=== PATIENT | male | born 1955 | race Caucasian/White ===

== ENCOUNTER → 2017-01-06 | Outpatient (CLI) | payer OTHER ==
[2017-01-06 12:15] LABS: BASOPHIL% 0.6 % (0-2.5); EOSINOPHIL# 0.1 X10e3 (0-0.7); EOSINOPHIL% 1.5 % (0.0-7.0); HEMATOCRIT 26.3 % (38.0-50.0); HEMOGLOBIN 8.5 gm/dL (13.0-16.0); LYMPHOCYTE# 1.1 X10e3 (1.0-3.5); LYMPHOCYTE% 14.9 % (17.0-45.0); MEAN CELL VOLUME 87.2 FL (83-96); MEAN CORPUSCULAR HEMOGLOBIN 28.2 PG (28-34); MEAN CORPUSCULAR HGB CONC 32.4 g/dL (30-36); MEAN PLATELET VOLUME 6.7 FL (6.5-11.5); MONOCYTE# 0.4 X10e3 (0-1.0); MONOCYTE% 5.1 % (3.0-12.0); NEUTROPHIL# 5.7 X10e3 (1.5-7.1); NEUTROPHIL% 77.9 % (40-75); PLATELET COUNT 234 X10e3 (140-420); RED BLOOD COUNT 3.02 X10e (3.90-5.60); RED CELL DISTRIBUTION WIDTH 19.2 % (11.0-15.5); WHITE BLOOD COUNT 7.3 X10e3 (4.0-10.5)
[2017-01-06 12:16] LABS: DIFF IND NO
[2017-01-06 13:42] LABS: ALBUMIN SERUM 3.9 g/dL (3.5-5.0); BILIRUBIN,TOTAL 0.5 mg/dL (0.2-2.0); BUN/CREATININE RATIO 13.12; CALCIUM SERUM 9.5 mg/dL (8.4-10.2); CREATININE SERUM 1.6 mg/dL (0.6-1.4); GLOM FILT RATE Estimated 46.2 mL/min (>60); POTASSIUM 5.1 mmol/L (3.5-5.1); PROTEIN TOTAL SERUM 6.5 g/dL (6.0-8.3)
== END | disposition home or self-care (01) ==
LOC: CTPL 11:13
PROVIDERS: Surgery
DX: Z48.23 Encounter for aftercare following liver transplant (principal); T45.1X1A Poisoning by antineoplastic and immunosuppressive drugs, accidental (unintentional), initial encounter; Z13.1 Encounter for screening for diabetes mellitus; Z94.4 Liver transplant status; Z79.899 Other long term (current) drug therapy
CPT/HCPCS: 36415; 80053; 80197; 82465; 84478; 85025

== ENCOUNTER → 2017-01-12 | Outpatient (CLI) | payer OTHER, MEDICARE ==
[2017-01-12 09:51] LABS: BASOPHIL# 0.1 X10e3 (0-0.3); BASOPHIL% 0.9 % (0-2.5); DIFF IND NO; EOSINOPHIL# 0.1 X10e3 (0-0.7); HEMATOCRIT 26.5 % (38.0-50.0); HEMOGLOBIN 8.6 gm/dL (13.0-16.0); LYMPHOCYTE# 1.4 X10e3 (1.0-3.5); LYMPHOCYTE% 19.8 % (17.0-45.0); MEAN CORPUSCULAR HEMOGLOBIN 28.4 PG (28-34); MEAN CORPUSCULAR HGB CONC 32.6 g/dL (30-36); MEAN PLATELET VOLUME 6.3 FL (6.5-11.5); MONOCYTE# 0.5 X10e3 (0-1.0); MONOCYTE% 6.4 % (3.0-12.0); NEUTROPHIL% 70.9 % (40-75); PLATELET COUNT 231 X10e3 (140-420); RED BLOOD COUNT 3.04 X10e (3.90-5.60); RED CELL DISTRIBUTION WIDTH 18.6 % (11.0-15.5); WHITE BLOOD COUNT 7.1 X10e3 (4.0-10.5)
[2017-01-12 10:54] LABS: ALBUMIN SERUM 3.8 g/dL (3.5-5.0); BILIRUBIN,TOTAL 0.2 mg/dL (0.2-2.0); BUN/CREATININE RATIO 13.88; CALCIUM SERUM 9.6 mg/dL (8.4-10.2); CREATININE SERUM 1.8 mg/dL (0.6-1.4); PROTEIN TOTAL SERUM 6.2 g/dL (6.0-8.3)
[2017-01-12 11:02] LABS: POTASSIUM 5.4 mmol/L (3.5-5.1)
== END | disposition home or self-care (01) ==
LOC: CLAB 09:03
PROVIDERS: Surgery
DX: Z48.23 Encounter for aftercare following liver transplant (principal); Z13.1 Encounter for screening for diabetes mellitus; T45.1X1D Poisoning by antineoplastic and immunosuppressive drugs, accidental (unintentional), subsequent encounter; Z79.891 Long term (current) use of opiate analgesic; Z94.4 Liver transplant status
CPT/HCPCS: 36415; 80053; 80197; 85025

== ENCOUNTER → 2017-01-26 | Outpatient (CLI) | payer OTHER, MEDICARE ==
[2017-01-26 08:59] LABS: BASOPHIL% 0.9 % (0-2.5); EOSINOPHIL# 0.1 X10e3 (0-0.7); EOSINOPHIL% 1.7 % (0.0-7.0); HEMOGLOBIN 8.8 gm/dL (13.0-16.0); LYMPHOCYTE# 1.3 X10e3 (1.0-3.5); LYMPHOCYTE% 23.7 % (17.0-45.0); MEAN CELL VOLUME 88.8 FL (83-96); MEAN CORPUSCULAR HEMOGLOBIN 28.8 PG (28-34); MEAN CORPUSCULAR HGB CONC 32.5 g/dL (30-36); MEAN PLATELET VOLUME 6.6 FL (6.5-11.5); MONOCYTE# 0.6 X10e3 (0-1.0); MONOCYTE% 9.7 % (3.0-12.0); NEUTROPHIL# 3.6 X10e3 (1.5-7.1); PLATELET COUNT 245 X10e3 (140-420); RED BLOOD COUNT 3.04 X10e (3.90-5.60); RED CELL DISTRIBUTION WIDTH 16.7 % (11.0-15.5); WHITE BLOOD COUNT 5.7 X10e3 (4.0-10.5)
[2017-01-26 09:02] LABS: DIFF IND NO
[2017-01-26 09:26] LABS: ALBUMIN SERUM 3.6 g/dL (3.5-5.0); BILIRUBIN,TOTAL 0.6 mg/dL (0.2-2.0); BUN/CREATININE RATIO 13.88; CALCIUM SERUM 9.1 mg/dL (8.4-10.2); CREATININE SERUM 1.8 mg/dL (0.6-1.4); POTASSIUM 4.1 mmol/L (3.5-5.1); PROTEIN TOTAL SERUM 6.5 g/dL (6.0-8.3)
== END | disposition home or self-care (01) ==
LOC: CTPL 08:15
PROVIDERS: Surgery
DX: Z48.23 Encounter for aftercare following liver transplant (principal); T45.1X1A Poisoning by antineoplastic and immunosuppressive drugs, accidental (unintentional), initial encounter; Z13.1 Encounter for screening for diabetes mellitus; Z94.4 Liver transplant status; Z79.891 Long term (current) use of opiate analgesic
CPT/HCPCS: 36415; 80053; 80197; 85025

== ENCOUNTER → 2017-02-02 | Outpatient (CLI) | payer OTHER ==
[2017-02-02 09:47] LABS: BASOPHIL# 0.1 X10e3 (0-0.3); BASOPHIL% 0.8 % (0-2.5); DIFF IND NO; EOSINOPHIL# 0.1 X10e3 (0-0.7); EOSINOPHIL% 1.5 % (0.0-7.0); HEMATOCRIT 27.9 % (38.0-50.0); HEMOGLOBIN 9.1 gm/dL (13.0-16.0); LYMPHOCYTE# 1.5 X10e3 (1.0-3.5); LYMPHOCYTE% 20.9 % (17.0-45.0); MEAN CELL VOLUME 89.7 FL (83-96); MEAN CORPUSCULAR HEMOGLOBIN 29.2 PG (28-34); MEAN CORPUSCULAR HGB CONC 32.6 g/dL (30-36); MEAN PLATELET VOLUME 6.9 FL (6.5-11.5); MONOCYTE# 0.5 X10e3 (0-1.0); MONOCYTE% 6.6 % (3.0-12.0); NEUTROPHIL# 5.2 X10e3 (1.5-7.1); NEUTROPHIL% 70.2 % (40-75); PLATELET COUNT 236 X10e3 (140-420); RED BLOOD COUNT 3.11 X10e (3.90-5.60); RED CELL DISTRIBUTION WIDTH 16.4 % (11.0-15.5); WHITE BLOOD COUNT 7.4 X10e3 (4.0-10.5)
[2017-02-02 10:22] LABS: ALBUMIN SERUM 3.7 g/dL (3.5-5.0); BILIRUBIN,TOTAL 0.3 mg/dL (0.2-2.0); BUN/CREATININE RATIO 14.37; CALCIUM SERUM 9.3 mg/dL (8.4-10.2); CREATININE SERUM 1.6 mg/dL (0.6-1.4); GLOM FILT RATE Estimated 46.2 mL/min (>60); POTASSIUM 5.2 mmol/L (3.5-5.1); PROTEIN TOTAL SERUM 6.3 g/dL (6.0-8.3)
== END | disposition home or self-care (01) ==
LOC: CTPL 09:13
PROVIDERS: Surgery
DX: Z48.23 Encounter for aftercare following liver transplant (principal); T45.1X1A Poisoning by antineoplastic and immunosuppressive drugs, accidental (unintentional), initial encounter; Z13.1 Encounter for screening for diabetes mellitus; Z94.4 Liver transplant status; Z79.891 Long term (current) use of opiate analgesic
CPT/HCPCS: 36415; 80053; 80197; 82465; 83036; 84478; 85025

== ENCOUNTER → 2017-02-09 | Outpatient (CLI) | payer OTHER ==
[2017-02-09 08:03] LABS: BASOPHIL% 0.5 % (0-2.5); EOSINOPHIL# 0.2 X10e3 (0-0.7); EOSINOPHIL% 1.9 % (0.0-7.0); HEMATOCRIT 29.5 % (38.0-50.0); HEMOGLOBIN 9.6 gm/dL (13.0-16.0); LYMPHOCYTE# 1.5 X10e3 (1.0-3.5); LYMPHOCYTE% 17.8 % (17.0-45.0); MEAN CORPUSCULAR HEMOGLOBIN 29.2 PG (28-34); MEAN CORPUSCULAR HGB CONC 32.4 g/dL (30-36); MONOCYTE# 0.6 X10e3 (0-1.0); MONOCYTE% 7.8 % (3.0-12.0); NEUTROPHIL# 5.9 X10e3 (1.5-7.1); PLATELET COUNT 251 X10e3 (140-420); RED BLOOD COUNT 3.27 X10e (3.90-5.60); RED CELL DISTRIBUTION WIDTH 16.3 % (11.0-15.5); WHITE BLOOD COUNT 8.2 X10e3 (4.0-10.5)
[2017-02-09 08:05] LABS: DIFF IND NO
[2017-02-09 08:34] LABS: ALBUMIN SERUM 3.9 g/dL (3.5-5.0); BILIRUBIN,TOTAL 0.4 mg/dL (0.2-2.0); BUN/CREATININE RATIO 12.5; CALCIUM SERUM 9.5 mg/dL (8.4-10.2); GLOM FILT RATE Estimated 35.2 mL/min (>60); PROTEIN TOTAL SERUM 6.2 g/dL (6.0-8.3)
[2017-02-09 09:08] LABS: POTASSIUM 5.5 mmol/L (3.5-5.1)
== END | disposition home or self-care (01) ==
LOC: CTPL 07:19
PROVIDERS: Surgery
DX: Z48.23 Encounter for aftercare following liver transplant (principal); T45.1X1A Poisoning by antineoplastic and immunosuppressive drugs, accidental (unintentional), initial encounter; Z13.1 Encounter for screening for diabetes mellitus; Z94.4 Liver transplant status; Z79.891 Long term (current) use of opiate analgesic
CPT/HCPCS: 36415; 80053; 80197; 85025

== ENCOUNTER → 2017-03-02 | Outpatient (CLI) | payer OTHER ==
[2017-03-02 10:12] LABS: BASOPHIL# 0.1 X10e3 (0-0.3); BASOPHIL% 0.7 % (0-2.5); EOSINOPHIL# 0.2 X10e3 (0-0.7); EOSINOPHIL% 2.1 % (0.0-7.0); HEMATOCRIT 36.5 % (38.0-50.0); HEMOGLOBIN 11.6 gm/dL (13.0-16.0); LYMPHOCYTE# 1.6 X10e3 (1.0-3.5); LYMPHOCYTE% 20.9 % (17.0-45.0); MEAN CORPUSCULAR HEMOGLOBIN 28.9 PG (28-34); MEAN CORPUSCULAR HGB CONC 31.7 g/dL (30-36); MEAN PLATELET VOLUME 7.2 FL (6.5-11.5); MONOCYTE# 0.4 X10e3 (0-1.0); MONOCYTE% 5.4 % (3.0-12.0); NEUTROPHIL# 5.5 X10e3 (1.5-7.1); NEUTROPHIL% 70.9 % (40-75); PLATELET COUNT 210 X10e3 (140-420); RED BLOOD COUNT 4.01 X10e (3.90-5.60); RED CELL DISTRIBUTION WIDTH 15.7 % (11.0-15.5); WHITE BLOOD COUNT 7.7 X10e3 (4.0-10.5)
[2017-03-02 10:16] LABS: DIFF IND NO
[2017-03-02 10:56] LABS: ALBUMIN SERUM 4.3 g/dL (3.5-5.0); BILIRUBIN,TOTAL 0.4 mg/dL (0.2-2.0); BUN/CREATININE RATIO 12.66; CALCIUM SERUM 9.5 mg/dL (8.4-10.2); CREATININE SERUM 1.5 mg/dL (0.6-1.4); GLOM FILT RATE Estimated 49.9 mL/min (>60); POTASSIUM 4.7 mmol/L (3.5-5.1); PROTEIN TOTAL SERUM 6.5 g/dL (6.0-8.3)
== END | disposition home or self-care (01) ==
LOC: CTPL 09:27
PROVIDERS: Surgery
DX: Z48.23 Encounter for aftercare following liver transplant (principal); T45.1X1D Poisoning by antineoplastic and immunosuppressive drugs, accidental (unintentional), subsequent encounter; Z13.1 Encounter for screening for diabetes mellitus; Z94.4 Liver transplant status; Z79.891 Long term (current) use of opiate analgesic
CPT/HCPCS: 36415; 80053; 80197; 82465; 83036; 84478; 85025

== ENCOUNTER → 2017-03-16 | Outpatient (CLI) | payer OTHER ==
[2017-03-16 08:51] LABS: BASOPHIL# 0.1 X10e3 (0-0.3); BASOPHIL% 0.7 % (0-2.5); EOSINOPHIL# 0.2 X10e3 (0-0.7); EOSINOPHIL% 3.1 % (0.0-7.0); HEMOGLOBIN 11.5 gm/dL (13.0-16.0); LYMPHOCYTE# 1.8 X10e3 (1.0-3.5); LYMPHOCYTE% 24.8 % (17.0-45.0); MEAN CELL VOLUME 90.2 FL (83-96); MEAN CORPUSCULAR HEMOGLOBIN 28.9 PG (28-34); MEAN PLATELET VOLUME 6.7 FL (6.5-11.5); MONOCYTE# 0.5 X10e3 (0-1.0); NEUTROPHIL# 4.6 X10e3 (1.5-7.1); NEUTROPHIL% 64.4 % (40-75); PLATELET COUNT 195 X10e3 (140-420); RED BLOOD COUNT 3.99 X10e (3.90-5.60); RED CELL DISTRIBUTION WIDTH 15.6 % (11.0-15.5); WHITE BLOOD COUNT 7.2 X10e3 (4.0-10.5)
[2017-03-16 08:53] LABS: DIFF IND NO
[2017-03-16 09:53] LABS: ALBUMIN SERUM 4.2 g/dL (3.5-5.0); BILIRUBIN,TOTAL 0.7 mg/dL (0.2-2.0); BUN/CREATININE RATIO 14.11; CALCIUM SERUM 9.6 mg/dL (8.4-10.2); CREATININE SERUM 1.7 mg/dL (0.6-1.4); GLOM FILT RATE Estimated 42.9 mL/min (>60); POTASSIUM 4.6 mmol/L (3.5-5.1); PROTEIN TOTAL SERUM 6.4 g/dL (6.0-8.3)
[2017-03-16 11:05] LABS: CHOLESTEROL 201 mg/dL (0-200); TRIGLYCERIDES 139 mg/dL (10-160)
== END | disposition home or self-care (01) ==
LOC: CTPL 08:21
PROVIDERS: Surgery
DX: Z48.23 Encounter for aftercare following liver transplant (principal); T45.1X1D Poisoning by antineoplastic and immunosuppressive drugs, accidental (unintentional), subsequent encounter; Z13.1 Encounter for screening for diabetes mellitus; Z94.4 Liver transplant status; Z79.891 Long term (current) use of opiate analgesic
CPT/HCPCS: 36415; 80053; 80197; 82465; 84478; 85025

== ENCOUNTER → 2017-03-30 | Outpatient (CLI) | payer OTHER ==
[2017-03-30 08:20] LABS: BASOPHIL% 0.5 % (0-2.5); EOSINOPHIL# 0.3 X10e3 (0-0.7); EOSINOPHIL% 2.9 % (0.0-7.0); HEMATOCRIT 37.4 % (38.0-50.0); HEMOGLOBIN 12.2 gm/dL (13.0-16.0); LYMPHOCYTE# 2.3 X10e3 (1.0-3.5); LYMPHOCYTE% 26.8 % (17.0-45.0); MEAN CELL VOLUME 89.9 FL (83-96); MEAN CORPUSCULAR HEMOGLOBIN 29.2 PG (28-34); MEAN CORPUSCULAR HGB CONC 32.5 g/dL (30-36); MEAN PLATELET VOLUME 7.1 FL (6.5-11.5); MONOCYTE# 0.6 X10e3 (0-1.0); MONOCYTE% 6.8 % (3.0-12.0); NEUTROPHIL# 5.5 X10e3 (1.5-7.1); PLATELET COUNT 218 X10e3 (140-420); RED BLOOD COUNT 4.16 X10e (3.90-5.60); RED CELL DISTRIBUTION WIDTH 14.6 % (11.0-15.5); WHITE BLOOD COUNT 8.7 X10e3 (4.0-10.5)
[2017-03-30 08:22] LABS: DIFF IND NO
[2017-03-30 09:06] LABS: ALBUMIN SERUM 4.3 g/dL (3.5-5.0); BILIRUBIN,TOTAL 0.6 mg/dL (0.2-2.0); BUN/CREATININE RATIO 18.57; CALCIUM SERUM 9.5 mg/dL (8.4-10.2); CREATININE SERUM 1.4 mg/dL (0.6-1.4); GLOM FILT RATE Estimated 54.2 mL/min (>60); POTASSIUM 5.3 mmol/L (3.5-5.1); PROTEIN TOTAL SERUM 6.4 g/dL (6.0-8.3)
[2017-03-31 08:05] LABS: EVEROLIMUS - JH 2.9 ng/mL (3.0-8.0); FK506 (TACROLIMUS) - JH 5.4 ng/mL (5.0-20.0)
== END | disposition home or self-care (01) ==
LOC: CLAB 07:12
PROVIDERS: Surgery
DX: Z48.23 Encounter for aftercare following liver transplant (principal); T45.1X1D Poisoning by antineoplastic and immunosuppressive drugs, accidental (unintentional), subsequent encounter; Z13.1 Encounter for screening for diabetes mellitus; Z79.891 Long term (current) use of opiate analgesic
CPT/HCPCS: 36415; 80053; 80197; 80299; 85025

== ENCOUNTER → 2017-04-13 | Outpatient (CLI) | payer OTHER ==
[2017-04-13 09:04] LABS: BASOPHIL# 0.1 X10e3 (0-0.3); BASOPHIL% 1.1 % (0-2.5); EOSINOPHIL# 0.1 X10e3 (0-0.7); EOSINOPHIL% 1.9 % (0.0-7.0); HEMATOCRIT 38.2 % (38.0-50.0); HEMOGLOBIN 12.4 gm/dL (13.0-16.0); LYMPHOCYTE# 1.6 X10e3 (1.0-3.5); LYMPHOCYTE% 24.4 % (17.0-45.0); MEAN CELL VOLUME 89.9 FL (83-96); MEAN CORPUSCULAR HEMOGLOBIN 29.1 PG (28-34); MEAN CORPUSCULAR HGB CONC 32.4 g/dL (30-36); MEAN PLATELET VOLUME 6.9 FL (6.5-11.5); MONOCYTE# 0.4 X10e3 (0-1.0); MONOCYTE% 6.7 % (3.0-12.0); NEUTROPHIL# 4.3 X10e3 (1.5-7.1); NEUTROPHIL% 65.9 % (40-75); PLATELET COUNT 165 X10e3 (140-420); RED BLOOD COUNT 4.24 X10e (3.90-5.60); RED CELL DISTRIBUTION WIDTH 14.9 % (11.0-15.5); WHITE BLOOD COUNT 6.5 X10e3 (4.0-10.5)
[2017-04-13 09:10] LABS: DIFF IND NO
[2017-04-13 09:47] LABS: ALBUMIN SERUM 4.3 g/dL (3.5-5.0); BILIRUBIN,TOTAL 0.2 mg/dL (0.2-2.0); BUN/CREATININE RATIO 16.11; CALCIUM SERUM 9.7 mg/dL (8.4-10.2); CREATININE SERUM 1.8 mg/dL (0.6-1.4); POTASSIUM 5.3 mmol/L (3.5-5.1); PROTEIN TOTAL SERUM 6.6 g/dL (6.0-8.3)
[2017-04-14 16:16] LABS: EVEROLIMUS - JH 3.3 ng/mL (3.0-8.0)
== END | disposition home or self-care (01) ==
LOC: CTPL 08:32
PROVIDERS: Surgery
DX: Z48.23 Encounter for aftercare following liver transplant (principal); T45.1X1D Poisoning by antineoplastic and immunosuppressive drugs, accidental (unintentional), subsequent encounter; Z13.1 Encounter for screening for diabetes mellitus; Z79.891 Long term (current) use of opiate analgesic
CPT/HCPCS: 36415; 80053; 80197; 80299; 82465; 84478; 85025

== ENCOUNTER → 2017-04-27 | Outpatient (CLI) | payer OTHER ==
[2017-04-27 07:50] LABS: BASOPHIL% 0.6 % (0-2.5); EOSINOPHIL# 0.1 X10e3 (0-0.7); EOSINOPHIL% 1.7 % (0.0-7.0); HEMATOCRIT 34.7 % (38.0-50.0); HEMOGLOBIN 11.4 gm/dL (13.0-16.0); LYMPHOCYTE# 1.9 X10e3 (1.0-3.5); LYMPHOCYTE% 26.1 % (17.0-45.0); MEAN CELL VOLUME 90.2 FL (83-96); MEAN CORPUSCULAR HEMOGLOBIN 29.5 PG (28-34); MEAN CORPUSCULAR HGB CONC 32.7 g/dL (30-36); MEAN PLATELET VOLUME 7.2 FL (6.5-11.5); MONOCYTE# 0.6 X10e3 (0-1.0); MONOCYTE% 7.8 % (3.0-12.0); NEUTROPHIL# 4.7 X10e3 (1.5-7.1); NEUTROPHIL% 63.8 % (40-75); PLATELET COUNT 203 X10e3 (140-420); RED BLOOD COUNT 3.85 X10e (3.90-5.60); RED CELL DISTRIBUTION WIDTH 14.6 % (11.0-15.5); WHITE BLOOD COUNT 7.5 X10e3 (4.0-10.5)
[2017-04-27 07:55] LABS: DIFF IND NO
[2017-04-27 08:25] LABS: ALBUMIN SERUM 4.3 g/dL (3.5-5.0); BILIRUBIN,TOTAL 0.4 mg/dL (0.2-2.0); BUN/CREATININE RATIO 14.5; CALCIUM SERUM 9.5 mg/dL (8.4-10.2); GLOM FILT RATE Estimated 35.2 mL/min (>60); POTASSIUM 5.3 mmol/L (3.5-5.1); PROTEIN TOTAL SERUM 6.7 g/dL (6.0-8.3)
[2017-04-27 15:58] LABS: EVEROLIMUS - JH 4.5 ng/mL (3.0-8.0)
[2017-04-27 15:59] LABS: FK506 (TACROLIMUS) - JH 7.1 ng/mL (5.0-20.0)
== END | disposition home or self-care (01) ==
LOC: CTPL 07:22
PROVIDERS: Surgery
DX: Z48.23 Encounter for aftercare following liver transplant (principal); T45.1X1D Poisoning by antineoplastic and immunosuppressive drugs, accidental (unintentional), subsequent encounter; Z87.891 Personal history of nicotine dependence
CPT/HCPCS: 36415; 80053; 80197; 80299; 85025

== ENCOUNTER → 2017-05-11 | Outpatient (CLI) | payer OTHER ==
[2017-05-11 09:17] LABS: BASOPHIL# 0.1 X10e3 (0-0.3); BASOPHIL% 0.8 % (0-2.5); DIFF IND NO; EOSINOPHIL# 0.1 X10e3 (0-0.7); EOSINOPHIL% 2.1 % (0.0-7.0); HEMATOCRIT 33.6 % (38.0-50.0); HEMOGLOBIN 11.5 gm/dL (13.0-16.0); LYMPHOCYTE# 2.1 X10e3 (1.0-3.5); LYMPHOCYTE% 31.1 % (17.0-45.0); MEAN CELL VOLUME 89.2 FL (83-96); MEAN CORPUSCULAR HEMOGLOBIN 30.6 PG (28-34); MEAN CORPUSCULAR HGB CONC 34.3 g/dL (30-36); MEAN PLATELET VOLUME 6.8 FL (6.5-11.5); MONOCYTE# 0.5 X10e3 (0-1.0); MONOCYTE% 7.5 % (3.0-12.0); NEUTROPHIL% 58.5 % (40-75); PLATELET COUNT 199 X10e3 (140-420); RED BLOOD COUNT 3.77 X10e (3.90-5.60); WHITE BLOOD COUNT 6.8 X10e3 (4.0-10.5)
[2017-05-11 10:23] LABS: ALBUMIN SERUM 4.2 g/dL (3.5-5.0); BILIRUBIN,TOTAL 0.4 mg/dL (0.2-2.0); BUN/CREATININE RATIO 15.71; CALCIUM SERUM 9.4 mg/dL (8.4-10.2); CREATININE SERUM 2.1 mg/dL (0.6-1.4); GLOM FILT RATE Estimated 33.2 mL/min (>60); POTASSIUM 4.4 mmol/L (3.5-5.1); PROTEIN TOTAL SERUM 6.3 g/dL (6.0-8.3)
[2017-05-12 14:55] LABS: EVEROLIMUS - JH 2.9 ng/mL (3.0-8.0)
[2017-05-12 14:56] LABS: FK506 (TACROLIMUS) - JH 3.5 ng/mL (5.0-20.0)
== END | disposition home or self-care (01) ==
LOC: CTPL 08:35
PROVIDERS: Surgery
DX: Z48.23 Encounter for aftercare following liver transplant (principal); Z13.1 Encounter for screening for diabetes mellitus; T45.1X1D Poisoning by antineoplastic and immunosuppressive drugs, accidental (unintentional), subsequent encounter; Z79.891 Long term (current) use of opiate analgesic
CPT/HCPCS: 36415; 80053; 80197; 80299; 82465; 83036; 84478; 85025

== ENCOUNTER → 2017-05-26 | Outpatient (CLI) | payer OTHER ==
[2017-05-26 08:17] LABS: BASOPHIL% 0.7 % (0-2.5); EOSINOPHIL# 0.2 X10e3 (0-0.7); EOSINOPHIL% 2.5 % (0.0-7.0); HEMATOCRIT 29.9 % (38.0-50.0); HEMOGLOBIN 10.3 gm/dL (13.0-16.0); LYMPHOCYTE# 2.4 X10e3 (1.0-3.5); LYMPHOCYTE% 37.1 % (17.0-45.0); MEAN CELL VOLUME 89.6 FL (83-96); MEAN CORPUSCULAR HEMOGLOBIN 30.8 PG (28-34); MEAN CORPUSCULAR HGB CONC 34.4 g/dL (30-36); MEAN PLATELET VOLUME 6.8 FL (6.5-11.5); MONOCYTE# 0.5 X10e3 (0-1.0); MONOCYTE% 8.5 % (3.0-12.0); NEUTROPHIL# 3.3 X10e3 (1.5-7.1); NEUTROPHIL% 51.2 % (40-75); PLATELET COUNT 187 X10e3 (140-420); RED BLOOD COUNT 3.33 X10e (3.90-5.60); RED CELL DISTRIBUTION WIDTH 14.5 % (11.0-15.5); WHITE BLOOD COUNT 6.4 X10e3 (4.0-10.5)
[2017-05-26 08:24] LABS: DIFF IND NO
[2017-05-26 09:08] LABS: BILIRUBIN,TOTAL 0.5 mg/dL (0.2-2.0); BUN/CREATININE RATIO 14.73; CALCIUM SERUM 9.3 mg/dL (8.4-10.2); CREATININE SERUM 1.9 mg/dL (0.6-1.4); GLOM FILT RATE Estimated 37.5 mL/min (>60); POTASSIUM 4.7 mmol/L (3.5-5.1); PROTEIN TOTAL SERUM 6.5 g/dL (6.0-8.3)
[2017-05-26 13:45] LABS: EVEROLIMUS - JH 5.2 ng/mL (3.0-8.0); FK506 (TACROLIMUS) - JH 3.6 ng/mL (5.0-20.0)
== END | disposition home or self-care (01) ==
LOC: CTPL 07:40
PROVIDERS: Surgery
DX: Z48.23 Encounter for aftercare following liver transplant (principal); T45.1X1D Poisoning by antineoplastic and immunosuppressive drugs, accidental (unintentional), subsequent encounter; Z79.891 Long term (current) use of opiate analgesic
CPT/HCPCS: 36415; 80053; 80197; 80299; 85025